=== PATIENT | female | born 1955 | race Caucasian/White ===

== ENCOUNTER → 2017-02-28 | Outpatient (CLI) | payer BC ==
--- NOTE | 2017-02-28 18:46 | DIAGNOSTIC IMAGING REPORT ---
CHEST 2 VIEWS ROUTINE HISTORY: 62 years-old Female CHEST PAIN, PT WENT TO [facility] . Acute atypical chest pain COMPARISON: Chest radiographs 03/16/2011 TECHNIQUE: Frontal and lateral views of the chest FINDINGS: Cardiomediastinal and hilar silhouettes are within normal limits. There is no pneumothorax, pleural effusion, focal airspace consolidation or overt edema. Bones are mildly demineralized. Degenerative changes are seen about the spine and shoulders. IMPRESSION: No acute cardiopulmonary process. The above report was generated using voice recognition software. It may contain grammatical, syntax or spelling errors. Electronically signed by: Emir Hernandez M.D. 02/28/2017 6:45 PM Dictated Date/Time: 02/28/2017 6:44 PM
[2017-02-28 19:08] LABS: CKMB/CK RATIO 0.4 (0-3.0)
== END | disposition home or self-care (01) ==
LOC: C.CPL 18:00
DX: R07.9 Chest pain, unspecified (principal)

== ENCOUNTER → 2017-03-01 | Outpatient (CLI) | payer BC ==
[~2017-03-01] MED LIST: OPTIRAY 320 IV PRN
--- NOTE | 2017-03-01 12:23 | DIAGNOSTIC IMAGING REPORT ---
(CHEST FOR PE) ANGIO WITH CLINICAL HISTORY: 62 years-old Female presenting with positive d-dimer, pleuritic chest pain. TECHNIQUE: Multidetector CT angiography of the chest was performed after administration of intravenous contrast. 3-D volumetric and/or maximum intensity projection (MIP) images were subsequently reconstructed for review. IV contrast: 99 mL of Optiray 320. A dose lowering technique was used consistent with the principles of ALARA (as low as reasonably achievable). COMPARISON: Chest x-ray performed the previous day. CT DOSE (mGy.cm): The estimated cumulative dose is 335.13 mGycm. FINDINGS: Legal Administrative Assistant topogram: Unremarkable. Pulmonary vasculature: The study is adequate for assessment of the pulmonary vascular tree. No filling defect within the pulmonary arteries to suggest embolus. Main pulmonary artery is not enlarged. No flattening of the interventricular septum. No intracardiac intracardiac filling defect. No reflux of contrast into the hepatic veins. Remaining chest: On soft tissue windows, normal thyroid and thoracic inlet. No axillary, supraclavicular, hilar, or mediastinal lymphadenopathy. Normal aorta. Multichamber enlargement of the heart. No pericardial or pleural effusion. Hypodensity in the medial left hepatic lobe, indeterminate but likely hepatic cyst. On lung windows, dependent groundglass opacity likely atelectasis. Airways patent. On bone windows, calcification adjacent to the right humeral head may represent calcific tendinitis. Postsurgical changes of the left humeral head. IMPRESSION: 1. No evidence of pulmonary embolus. No acute intrathoracic pathology. Electronically signed by: Kd Talbert M.D. 03/01/2017 12:22 PM Dictated Date/Time: 03/01/2017 12:17 PM
== END | disposition home or self-care (01) ==
LOC: C.CTS 11:35
DX: R79.1 Abnormal coagulation profile (principal); R07.89 Other chest pain